=== PATIENT | female | born 2000 | race Caucasian/White ===

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

== ENCOUNTER 2020-01-10 17:39 | Emergency (ER) | payer SELFPAY ==
[~2020-01-10] VITALS: Ht 160 cm; Wt 50.1 kg
[2020-01-10 17:46] VITALS: BP 114/85
== END 2020-01-10 18:39 | disposition home or self-care (01) ==
LOC: MED 17:39
DX: R09.89 Other specified symptoms and signs involving the circulatory and respiratory systems (principal)
CPT/HCPCS: 99283

== ENCOUNTER 2021-04-16 18:47 | Emergency (ER) | payer OTHER ==
[~2021-04-16] VITALS: Ht 160 cm; Wt 53.5 kg
[2021-04-16 18:50] VITALS: BP 126/86
[2021-04-16 19:17] LABS: BASOPHILS % (AUTO) 0.5 % (0.0-2.0); EOSINOPHILS # (AUTO) 0.1 K/uL (0-0.4); EOSINOPHILS % (AUTO) 1.5 % (0.0-4.0); HEMATOCRIT 39.7 % (36-48); HEMOGLOBIN 13.6 g/dL (12.0-16.0); LYMPHOCYTES # (AUTO) 1.3 K/uL (2.5-16.5); LYMPHOCYTES % (AUTO) 26.8 % (20.5-51.1); MEAN CORPUSCULAR HEMOGLOBIN 30 pg (27-31); MEAN CORPUSCULAR HGB CONC 34 g/dL (33-37); MEAN CORPUSCULAR VOLUME 88.2 fL (80-94); MONOCYTES # (AUTO) 0.3 K/uL (0.8-1.0); NEUTROPHILS # (AUTO) 3.1 K/uL (1.8-7.7); NEUTROPHILS % (AUTO) 65.2 % (42.2-75.2); PLATELET COUNT (AUTO) 254 K/uL (140-450); RED CELL DISTRIBUTION WIDTH 12.8 % (11.6-13.7); WHITE BLOOD COUNT (AUTO) 4.8 K/uL (4.8-10.8)
[2021-04-16 19:23] LABS: APPEARANCE,URINE CLEAR (CLEAR); BILIRUBIN,URINE NEGATIVE (NEGATIVE); BLOOD, URINE TRACE-I (NEGATIVE); LEUKOCYTE ESTERASE ,URINE NEGATIVE (NEGATIVE); NITRITE, URINE NEGATIVE (NEGATIVE); UGLUCOSE NEGATIVE (NEGATIVE)
[2021-04-16 19:24] LABS: COLOR,URINE STRAW (YELLOW)
[2021-04-16 19:32] LABS: ALBUMIN 4.4 g/dL (3.4-5.0); ANION GAP 16.5 (8-16); CARBON DIOXIDE 23.9 mmol/L (21-32); CREATININE 0.6 mg/dL (0.6-1.3); POTASSIUM 3.4 mmol/L (3.5-5.1); TOTAL BILIRUBIN 0.2 mg/dL (0.0-1.0)
[2021-04-16 19:41] LABS: RBC,URINE 0-5 /HPF (0-5); WBC,URINE NONE SEEN /HPF (0-5)
[2021-04-16] MEDS ORDERED: NACL 0.9% 1,000 ML IV ONE (21:55)
[2021-04-16 23:42] VITALS: BP 126/86
== END 2021-04-16 23:42 | disposition home or self-care (01) ==
LOC: MED 18:47
DX: R10.9 Unspecified abdominal pain (principal); R11.0 Nausea; R53.1 Weakness
CPT/HCPCS: 36415; 80053; 81001; 81025; 83690; 85025; 96360; 99283; J7030

== ENCOUNTER 2022-05-03 16:20 | Emergency (ER) | payer OTHER ==
[~2022-05-03] VITALS: Ht 160 cm; Wt 57.7 kg
[2022-05-03 16:46] VITALS: BP 100/63
[2022-05-03] MEDS ORDERED: IBUP-2213 PO (17:14)
[2022-05-03] MEDS ORDERED: BENZ-300 PO (17:14)
--- NOTE | 2022-05-03 18:21 | NUR ---
Called for patient in lobby, no answer.
--- NOTE | 2022-05-03 18:41 | NUR ---
Called for patient in lobby, no answer.
--- NOTE | 2022-05-03 18:47 | NUR ---
Left without discharge instructions or swabs.
== END 2022-05-03 18:47 | disposition home or self-care (01) ==
LOC: MED 16:20
DX: J02.9 Acute pharyngitis, unspecified (principal); Z79.899 Other long term (current) drug therapy
CPT/HCPCS: 99282

== ENCOUNTER 2022-05-13 11:31 | Emergency (ER) | payer OTHER ==
[~2022-05-13] VITALS: Ht 160 cm; Wt 64.4 kg
[~2022-05-13 11:31] MED LIST: BENZ-300 PO; IBUP-2213 PO
[2022-05-13 11:41] VITALS: BP 119/70
--- NOTE | 2022-05-13 11:43 | NUR ---
PT TO WAIT IN LOBBY.
--- NOTE | 2022-05-13 11:45 | NUR ---
22 Y/O FEMALE C/O DIARRHEA WITH ABD PAIN 9/10 DESCRIBES CRAMPING [id number]. PT STATES +DYSURIA. DENIES RX PRIOR TO ARRIVAL. DENIES FEVER/CHILLS. DENIES PMH NKA
--- NOTE | 2022-05-13 14:05 | NUR ---
PELVIC SWABS COLLECTED AND WALKED TO LAB
[2022-05-13] MEDS ORDERED: cefTRIAXone 500 MG in LIDOCAINE MPF 1% 1 ML IM ONE (15:05)
[2022-05-13] MEDS ORDERED: DOXY-690 PO (15:09)
[2022-05-13] MEDS ORDERED: cefTRIAXone 500 MG VIAL ONE (15:47)
[2022-05-13] MEDS ORDERED: LIDOCAINE MPF 1% 5 ML ONE (15:48)
[2022-05-13 16:20] VITALS: BP 118/76
--- NOTE | 2022-05-13 16:21 | NUR ---
Patient discharged with v/s stable. Written and verbal after care instructions given and explained. Patient alert, oriented and verbalized understanding of instructions. Ambulatory with steady gait. All questions addressed prior to discharge. ID band removed. Patient advised to follow up with PMD. Rx of VIBRAMYCIN given. Patient educated on indication of medication including possible reaction and side effects. Opportunity to ask questions provided and answered.
== END 2022-05-13 16:21 | disposition home or self-care (01) ==
LOC: MED 11:31
DX: R30.0 Dysuria (principal); Z11.3 Encounter for screening for infections with a predominantly sexual mode of transmission; Z79.899 Other long term (current) drug therapy
CPT/HCPCS: 81002; 81025; 87070; 87205; 87210; 87491; 96372; 99283; J0696; J2001